=== PATIENT | male | born 1975 | race American Indian/Alaskan Native ===

== ENCOUNTER 2017-05-14 23:44 | Emergency (ER) | payer OTHER ==
[2017-05-15] MEDS ORDERED: FUL-GLO OP ONE ×2 (02:35→02:36)
[2017-05-15] MEDS ORDERED: TETRACAINE 0.5% ONE (02:36)
[2017-05-15] MEDS ORDERED: TETRACAINE 0.5% OU ONE (02:36)
--- NOTE | 2017-05-15 02:51 | Emergency Department Report ---
[facility] Chief Complaint: Eye Problems Stated Complaint: LEFT EYE REDDENED Time Seen by Provider: 05/15/17 02:35 Duration: 3 Days Side: Left Severity: moderate Symptoms: Yes Eye Redness, Yes Blurred Vision, No Eye Itching, No Eye Pain, No Mucous Drainage, No Purulent Drainage, No Preceding URI, No H/O Allergic Rhinitis, No Contact Lens Use, No Trauma, No Fever ED Review of Systems ROS: Stated complaint: LEFT EYE REDDENED Other details as noted in HPI Constitutional: denies: chills, fever Eyes: denies: eye pain, eye discharge, vision change ENT: denies: ear pain, throat pain Respiratory: denies: cough, shortness of breath, wheezing Cardiovascular: denies: chest pain, palpitations Endocrine: no symptoms reported Gastrointestinal: denies: abdominal pain, nausea, diarrhea Genitourinary: denies: urgency, dysuria Musculoskeletal: denies: back pain, joint swelling, arthralgia Skin: denies: rash, lesions Neurological: denies: headache, weakness, paresthesias Psychiatric: denies: anxiety, depression Hematological/Lymphatic: denies: easy bleeding, easy bruising ED Past Medical Hx - Past Medical History Previous Medical History?: No - Social History Smoking Status: Never Smoker - Medications Home Medications: Home Medications Medication Instructions Recorded Confirmed Last Taken Type Cyclobenzaprine HCl [Flexeril 5 MG 5 mg PO BID #12 tablet 04/27/16 Unknown Rx TAB] Ibuprofen [Motrin 800 MG tab] 800 mg PO Q8HR PRN #30 tablet 05/15/17 Unknown Rx Ketorolac Tromethamine [Acular 1 drop OP TID #5 ml 05/15/17 Unknown Rx 0.5% Opth Soln] Ofloxacin [Ocuflox 0.3%] 1 - 2 drop OP QID #5 ml 05/15/17 Unknown Rx [facility] Exam - Exam General: Vital signs noted. No distress. Alert and acting appropriately. Eye Exam: Left Injection, Left Chemosis, Neither Abnormal Pupil, Neither EOMI, Neither Eye Foreign Body, Neither Lid Foreign Body, Neither Mucous Discharge, Neither Purulent Discharge, Neither Fluorescein Uptake, Neither Corneal Edema, Neither Photophobia HEENT: No Nasal Congestion, No Pharyngeal Erythema Remainder of HEENT: Normal Lungs: Yes Clear Lung Sounds, Yes Good Air Exchange, Yes Use of Accessory Muscles, No Wheezes, No Stridor, No Cough, No Nasal Flaring, No Retractions Exam: Visual acuity: Left eye: Right eye: both eyes: ED Course Vital Signs 05/15/17 05/15/17 00:06 01:02 Temperature 98.0 F 98.0 F Pulse Rate 83 81 Respiratory 18 18 Rate Blood Pressure 126/89 126/89 O2 Sat by Pulse 99 98 Oximetry ED Medical Decision Making - Medical Decision Making 41-year-old male presents with Left eye conjunctivitis. Vision is intact bilaterally. Patient has no loss of vision There are no signs of corneal abrasion or fluorescein uptake Discussed this with the patient. Discussed patient trial of antibiotics drops for the eyes. Discussed the patient's complete dose. Discussed the patient that this is contagious and can be spread to wash and sterile Vital signs are normal patient is in no acute distress Critical care attestation.: If time is entered above; I have spent that time in minutes in the direct care of this critically ill patient, excluding procedure time. ED Disposition Clinical Impression: Conjunctivitis Qualifiers: Conjunctivitis type: acute Acute conjunctivitis type: unspecified Laterality: left Qualified Code(s): H10.32 - Unspecified acute conjunctivitis, left eye Disposition: DC-01 TO HOME OR SELFCARE Is pt being admited?: No Does the pt Need Aspirin: No Condition: Stable Instructions: Conjunctivitis (ED), Orbital Cellulitis (ED) Additional Instructions: Make sure to follow up with the primary care physician as discussed. Take all your medications as you've been prescribed. If you have any worsening symptoms or develop new symptoms please return to ED immediately. Prescriptions: Ibuprofen [Motrin 800 MG tab] 800 mg PO Q8HR PRN #30 tablet PRN Reason: Pain Ketorolac Tromethamine [Acular 0.5% Opth Soln] 1 drop OP TID #5 ml Ofloxacin [Ocuflox 0.3%] 1 - 2 drop OP QID #5 ml Referrals: PRIMARY MD RADHA [Primary Care Provider] - 3-5 Days ADDI CALVERT MD [Staff Physician] - 3-5 Days [facility] [Outside] - 3-5 Days [facility] [Outside] - 3-5 Days [facility] [Outside] - 3-5 Days Forms: Work/School Release Form(ED) Time of Disposition: 03:42
[2017-05-15 04:28] VITALS: BP 129/84
== END 2017-05-15 04:28 | disposition home or self-care (01) ==
LOC: ED 23:44
DX: H10.9 Unspecified conjunctivitis (principal)
CPT/HCPCS: 99283